=== PATIENT | female | born 1975 | race Caucasian/White ===

== ENCOUNTER 2018-02-13 10:45 | Outpatient (REF) | payer BC, SELFPAY ==
--- NOTE | 2018-02-13 09:30 | PAPFT_PTH ---
PATIENT: Caitlin Alfonso LOC: [facility] U#:[id number] AGE/SX: 42/F ROOM: RE02/13/[address]: RAJAT Sarabia : 1975 BED: DIS: 02/13/2018 SPEC #: [id number] RECD: 02/13/18 12:28 STATUS: EVARISTO RETyrone #: [id number] TEODORO: 02/13/18 09:[address]: Xiao Swartz DEPT: [facility] Cytology RECD BY: Kaci Maurer ENTERED: 02/13/18 12:28 SP TYPE: PAPFT OTHR DR: Jess Bajwa Tissues: 1 - CX/ENDOCX FOR PAP SMEARS Procedures: PAP THIN PREP/[facility] Screening Comments: [id number]
== END 2018-02-13 11:05 ==
LOC: LBN 10:45
PROVIDERS: PCP Registered Nurse; Visit Provider Nurse Practitioner Family
DX: Z12.4 Encounter for screening for malignant neoplasm of cervix (principal)
CPT/HCPCS: 88142

== ENCOUNTER 2018-03-07 00:48 | Outpatient (CLI) | payer BC, SELFPAY ==
--- NOTE | 2018-03-07 09:13 | DI.MAMMO_ITS ---
SYMPTOM/DIAGNOSIS: DIAGNOSTIC, 6 MO. F/U, F/U ABNL MAMMO, INCREASED DENSITY LEFT MAMMOGRAM: Mammograms were interpreted according to the usual protocol including computer analysis with CAD system, tomosynthesis and C view imaging. Comparison is made with prior examinations. Breast density, Category C. The asymmetric breast tissue in the lower inner quadrant of the left breast appears stable. No suspicious masses or microcalcifications are seen. The skin and axilla are unremarkable. IMPRESSION: No definite evidence for malignancy. A 6 month follow up left diagnostic mammogram is requested at which time mammogram of the right breast should be obtained. No evidence for malignancy. Category 3. MQSA ASSESSMENT OF FINDINGS: Probably benign. Six month follow-up recommended. Category 3. Patient will receive a letter notifying them of these results. Bi-RADS category C. The breasts are heterogeneously dense, which may obscure small masses.
== END 2018-03-07 01:08 ==
PROVIDERS: PCP Registered Nurse; Visit Provider Nurse Practitioner Family
DX: Z12.31 Encounter for screening mammogram for malignant neoplasm of breast (principal); R92.8 Other abnormal and inconclusive findings on diagnostic imaging of breast; N60.82 Other benign mammary dysplasias of left breast
CPT/HCPCS: 77061; 77065; G0279

== ENCOUNTER 2018-08-28 00:34 | Outpatient (CLI) | payer BC, SELFPAY ==
--- NOTE | 2018-08-28 09:15 | DI.MAMMO_ITS ---
SYMPTOMS/DIAGNOSIS: SCREENING, Z12.31 MAMMOGRAM: Mammograms were interpreted according to the usual protocol including computer analysis with CAD system, tomosynthesis and C view imaging. Comparison with prior examinations. Breast density C. No suspicious masses or microcalcifications are seen. The asymmetric breast tissue in the medial aspect of the left breast is best appreciated on the craniocaudad view. It does appear to be slightly more prominent compared to the prior examination. Spot compression view is requested. Ultrasound may be indicated at that time. No other suspicious masses or microcalcifications are seen. The skin and axilla are unremarkable. IMPRESSION: Additional views and ultrasound of the left breast is requested as described above. Category 0. MQSA ASSESSMENT OF FINDINGS: Incomplete: Needs additional imaging evaluation. Category 0. Patient will receive a letter notifying them of these results. Bi-RADS category C. The breasts are heterogeneously dense, which may obscure small masses.
== END 2018-08-28 00:54 ==
PROVIDERS: PCP Registered Nurse; Visit Provider Nurse Practitioner Family
DX: Z12.31 Encounter for screening mammogram for malignant neoplasm of breast (principal); R92.8 Other abnormal and inconclusive findings on diagnostic imaging of breast
CPT/HCPCS: 77063; 77067

== ENCOUNTER 2018-09-06 00:38 | Outpatient (CLI) | payer BC, SELFPAY ==
--- NOTE | 2018-09-06 09:55 | DI.COMBO_ITS ---
SYMPTOM/DIAGNOSIS: F/U ABNL MAMMO, ASYMMETRIC BREAST TISSUE. ADDITIONAL VIEWS LEFT BREAST, LEFT BREAST ULTRASOUND: Comparison with prior examinations. Additional images are interpreted according to the usual protocol including tomosynthesis and 2D imaging. Additional views of the left breast again show an asymmetric density in the medial left breast on the craniocaudad view. No associated areas of architectural distortion or calcification are noted. It appears unchanged compared to the prior examination. Left breast ultrasound was performed. The lower inner and upper inner quadrants of the left breast were evaluated sonographically. No cystic or solid masses are seen. Comparison with ultrasound from 08/31/17 shows no change. IMPRESSION: No evidence for malignancy. Yearly mammography is recommended. Category 2. Breast density category C. The findings were discussed with the patient on the date of the examination. SA ASSESSMENT OF FINDINGS: Negative with benign findings. Category 2. Patient will receive a letter notifying them of these results. Bi-RADS category C. The breasts are heterogeneously dense, which may obscure small masses.
== END 2018-09-06 00:58 ==
PROVIDERS: PCP Registered Nurse; Visit Provider Nurse Practitioner Family
DX: Z12.31 Encounter for screening mammogram for malignant neoplasm of breast (principal); R92.8 Other abnormal and inconclusive findings on diagnostic imaging of breast; N64.59 Other signs and symptoms in breast
CPT/HCPCS: 76642; 77063; 77067

== ENCOUNTER 2019-02-19 08:49 | Outpatient (REF) | payer BC, SELFPAY ==
--- NOTE | 2019-02-19 08:45 | PAPFT_PTH ---
PATIENT: Caitlin Alfonso LOC: [facility] U#:[id number] AGE/SX: 43/F ROOM: RE02/19/[address]: RAJAT Sarabia : 1975 BED: DIS: 02/19/2019 SPEC #: [id number] RECD: 02/19/19 12:55 STATUS: EVARISTO GEOFF #: [id number] TEODORO: 02/19/19 08:[address]: Xiao Swartz DEPT: [facility] Cytology RECD BY: Kaci Maurer ENTERED: 02/19/19 12:55 SP TYPE: PAPFT OTHR DR: Jess Bajwa Tissues: 1 - CX/ENDOCX FOR PAP SMEARS Procedures: PAP THIN PREP/[facility] Screening HPV DNA PROBE Comments: [id number]
== END 2019-02-19 09:09 ==
LOC: LBN 08:49
PROVIDERS: PCP Registered Nurse; Visit Provider Nurse Practitioner Family
DX: R30.0 Dysuria (principal); Z12.4 Encounter for screening for malignant neoplasm of cervix
CPT/HCPCS: 88142; 87086; 87624

== ENCOUNTER 2019-11-29 01:41 | Outpatient (CLI) | payer BC, SELFPAY ==
--- NOTE | 2019-11-29 16:05 | DI.MAMMO_ITS ---
EXAM: MG MAMMO SCREENING CLINICAL HISTORY: screening,Z12.39 TECHNIQUE: Bilateral full field digital CC and MLO mammographic images were obtained with 3D tomosyn thesis and utilizing computer aided detection (CAD). COMPARISON: Available for comparison. FINDINGS: Masses/Architectural Distortion: None seen. Microcalcifications: No suspicious pleomorphic-type are seen. Skin Thickening/Nipple Retraction: None. IMPRESSION: 1. No significant interval change with no specific features of malignancy noted. 2. Unless there is more urgent need, screening mammography is recommended, as per [employer] guidelines. BI-RADS Category 1 - Negative Breast Density - Category C - Heterogeneously dense The mammogram demonstrates the patient's breast tissue is dense. Dense breast tissue is very common a nd is not abnormal but dense breast tissue can make it harder to find cancer on a mammogram. Also, de nse breast tissue may increase their breast cancer risk. This information about the result of the [facility] mogram report was provided to the patient to raise their awareness. Use this report when you speak wi th the patient about their risks for breast cancer, which includes their family history. At that time , you may recommend for more screening tests (Ultrasound or MRI) as they might be useful based on the ir risk. A negative radiographic report should not delay biopsy if a dominant or clinically suspicious mass is present. Up to ten percent of cancers are not identified on mammography. A negative report may reinforce clinical impression. Adenosis and dense breasts may obscure an underlying neoplasm. False positive reports average 6 to 10%. Patient will receive a letter notifying them of these results.
== END 2019-11-29 02:01 ==
PROVIDERS: PCP Registered Nurse; Visit Provider Nurse Practitioner Family
DX: Z12.31 Encounter for screening mammogram for malignant neoplasm of breast (principal)
CPT/HCPCS: 77063; 77067

== ENCOUNTER 2024-04-16 02:23 | Outpatient (CLI) | payer BC, SELFPAY ==
--- NOTE | 2024-04-18 20:50 | W.PFT ---
Date of service: 04/16/24 Time of Service: 14:55 Pulmonary Function Test Result Indications: Chemotherapy induced lung injury Interpretation Diffusion Capacity: Normal diffusion Impression Normal diffusion Clinical Correlation therefore is recommended.
== END 2024-04-16 02:24 | disposition home or self-care (01) ==
PROVIDERS: PCP Registered Nurse; Visit Provider Student in an Organized Health Care Education/Training Program
DX: J98.4 Other disorders of lung (principal); Z79.899 Other long term (current) drug therapy
CPT/HCPCS: 94729

== ENCOUNTER 2024-07-11 00:44 | Outpatient (RCR) | payer BC, SELFPAY ==
[2024-06-20] MEDS: Normal Saline Flush 10 ML SYR IVP (12:44)
[2024-06-20 13:03] LABS: Abs Immature Grans 0.02 10^3/uL (0.0-0.06); Absolute Basophil Count 0.05 10^3/uL (0.0-0.2); Absolute Eosinophil Count 0.04 10^3/uL (0.0-0.7); Absolute Lymphocyte Count 2.23 10^3/uL (1.2-3.4); Absolute Monocyte Count 0.92 10^3/uL (0.1-0.8); Absolute Neutrophil Count 6.28 10^3/uL (1.2-6.7); Basophils % 0.5 %; Eosinophils % 0.4 %; HCT 39.5 % (36.0-46.0); HGB 13.4 g/dL (11.2-15.7); Immature Grans % 0.2 %; Lymphocytes % 23.4 %; MCH 29.5 pg (27.0-33.0); MCHC 33.9 % (32.0-36.0); MCV 87 fL (80-95); MPV 10.1 fL (8.0-11.0); Monocytes % 9.6 %; Neutrophils % 65.9 %; Platelet Count 133 10^3/uL (130-400); RBC 4.55 10^6/uL (3.93-5.22); RDW 14.5 % (11.7-14.6); RDW-SD 45.6 fL; WBC 9.54 10^3/uL (4.4-10.8)
[2024-06-20 13:19] LABS: ALT 34 U/L (14-59); AST 18 U/L (15-37); Albumin 3.6 g/dL (3.4-5.0); Alkaline Phosphatase 54 U/L (46-116); Anion Gap 5.7 mmol/L (3-11); BUN 15 mg/dL (7-18); Bilirubin, Total 0.3 mg/dL (0.2-1.0); CO2 28.3 mmol/L (21.0-32.0); CREATININE 0.6 mg/dL (0.55-1.02); Calcium 9.2 mg/dL (8.5-10.1); Chloride 103 mmol/L (98-107); Estimated GFR 110.65 (mL/min/1.73m2); Glucose 115 mg/dL (74-106); Potassium 3.7 mmol/L (3.5-5.1); Sodium 137 mmol/L (136-145); Total Protein 7.3 g/dL (6.4-8.2)
[2024-06-21 18:23] LABS: Estradiol 141 pg/mL (See Note)
[2024-06-21 18:42] LABS: FSH 2.7 mIU/mL (See Note)
[2024-07-11] MEDS: Normal Saline Flush 10 ML SYR IVP (12:19)
[2024-07-11 12:39] LABS: Abs Immature Grans 0.02 10^3/uL (0.0-0.06); Absolute Basophil Count 0.01 10^3/uL (0.0-0.2); Absolute Eosinophil Count 0.08 10^3/uL (0.0-0.7); Absolute Lymphocyte Count 1.29 10^3/uL (1.2-3.4); Absolute Monocyte Count 0.32 10^3/uL (0.1-0.8); Absolute Neutrophil Count 3.06 10^3/uL (1.2-6.7); Basophils % 0.2 %; Eosinophils % 1.7 %; HCT 38.3 % (36.0-46.0); HGB 12.9 g/dL (11.2-15.7); Immature Grans % 0.4 %; MCHC 33.7 % (32.0-36.0); MCV 89 fL (80-95); MPV 9.7 fL (8.0-11.0); Monocytes % 6.7 %; Platelet Count 179 10^3/uL (130-400); RDW 14.2 % (11.7-14.6); RDW-SD 45.3 fL; WBC 4.78 10^3/uL (4.4-10.8)
[2024-07-11 12:56] LABS: ALT 24 U/L (14-59); AST 14 U/L (15-37); Albumin 3.7 g/dL (3.4-5.0); Alkaline Phosphatase 58 U/L (46-116); Anion Gap 9.2 mmol/L (3-11); BUN 15 mg/dL (7-18); Bilirubin, Total 0.3 mg/dL (0.2-1.0); CO2 28.8 mmol/L (21.0-32.0); CREATININE 0.7 mg/dL (0.55-1.02); Calcium 9.2 mg/dL (8.5-10.1); Chloride 102 mmol/L (98-107); Estimated GFR 106.62 (mL/min/1.73m2); Glucose 121 mg/dL (74-106); Sodium 140 mmol/L (136-145); Total Protein 7.6 g/dL (6.4-8.2)
[2024-07-11 22:18] LABS: Estradiol 127 pg/mL (See Note)
[2024-07-11 22:33] LABS: FSH 24.4 mIU/mL (See Note)
== END 2024-07-14 23:59 | disposition home or self-care (01) ==
LOC: INF 00:44
PROVIDERS: PCP Registered Nurse; Visit Provider Internal Medicine Hematology & Oncology
DX: C71.1 Malignant neoplasm of frontal lobe (principal)
CPT/HCPCS: 36591; 80053; 82670; 83001; 85025

== ENCOUNTER 2024-08-01 02:51 | Outpatient (RCR) | payer BC, SELFPAY ==
[2024-08-01 13:08] LABS: Abs Immature Grans 0.02 10^3/uL (0.0-0.06); Absolute Basophil Count 0.03 10^3/uL (0.0-0.2); Absolute Eosinophil Count 0.03 10^3/uL (0.0-0.7); Absolute Neutrophil Count 3.63 10^3/uL (1.2-6.7); Basophils % 0.5 %; Eosinophils % 0.5 %; HCT 38.8 % (36.0-46.0); HGB 13.1 g/dL (11.2-15.7); Immature Grans % 0.3 %; Lymphocytes % 26.6 %; MCH 30.8 pg (27.0-33.0); MCHC 33.8 % (32.0-36.0); MCV 91 fL (80-95); MPV 9.8 fL (8.0-11.0); Monocytes % 11.6 %; Neutrophils % 60.5 %; Platelet Count 223 10^3/uL (130-400); RBC 4.26 10^6/uL (3.93-5.22); RDW 15.3 % (11.7-14.6); WBC 6.01 10^3/uL (4.4-10.8)
[2024-08-01] MEDS: Normal Saline Flush 10 ML SYR IVP (13:25)
[2024-08-01 13:26] LABS: ALT 32 U/L (14-59); AST 17 U/L (15-37); Albumin 3.6 g/dL (3.4-5.0); Alkaline Phosphatase 56 U/L (46-116); Anion Gap 7.3 mmol/L (3-11); BUN 16 mg/dL (7-18); Bilirubin, Total 0.3 mg/dL (0.2-1.0); CO2 31.7 mmol/L (21.0-32.0); CREATININE 0.7 mg/dL (0.55-1.02); Calcium 9.1 mg/dL (8.5-10.1); Chloride 103 mmol/L (98-107); Estimated GFR 106.62 (mL/min/1.73m2); Glucose 100 mg/dL (74-106); Sodium 142 mmol/L (136-145); Total Protein 7.3 g/dL (6.4-8.2)
[2024-08-01 23:26] LABS: Estradiol 22 pg/mL (See Note)
[2024-08-02 09:57] LABS: FSH 33.2 mIU/mL (See Note)
== END 2024-08-13 23:59 | disposition home or self-care (01) ==
LOC: INF 02:51
PROVIDERS: PCP Registered Nurse; Visit Provider Internal Medicine Hematology & Oncology
DX: C71.1 Malignant neoplasm of frontal lobe (principal); Z45.2 Encounter for adjustment and management of vascular access device
CPT/HCPCS: 36591; 80053; 82670; 83001; 85025

== ENCOUNTER 2024-08-03 01:21 | Outpatient (CLI) | payer BC, SELFPAY ==
--- NOTE | 2024-08-19 09:41 | W.PFT ---
Date of service: 08/03/24 Time of Service: 09:59 Pulmonary Function Test Result Indications: Brain tumor Interpretation Spirometry: No airflow limitation. Lung Volumes: Normal lung volumes Diffusion Capacity: Normal diffusion Airway Pressure: Normal airways resistance Impression Normal pulmonary fucntion testing Clinical Correlation therefore is recommended.
== END 2024-08-03 01:22 | disposition home or self-care (01) ==
LOC: RT 01:21
PROVIDERS: PCP Registered Nurse; Visit Provider Student in an Organized Health Care Education/Training Program
DX: C71.1 Malignant neoplasm of frontal lobe (principal)
CPT/HCPCS: 94726; 94729; 94010

== ENCOUNTER 2024-09-12 03:19 | Outpatient (RCR) | payer BC, SELFPAY ==
[2024-08-22 09:02] LABS: Abs Immature Grans 0.02 10^3/uL (0.0-0.06); HCT 39.3 % (36.0-46.0); HGB 13.4 g/dL (11.2-15.7); Immature Grans % 0.3 %; MCH 31.0 pg (27.0-33.0); MCHC 34.1 % (32.0-36.0); MCV 91 fL (80-95); MPV 10.3 fL (8.0-11.0); Platelet Count 141 10^3/uL (130-400); RBC 4.32 10^6/uL (3.93-5.22); RDW 14.2 % (11.7-14.6); RDW-SD 47.4 fL; WBC 7.78 10^3/uL (4.4-10.8)
[2024-08-22] MEDS: Normal Saline Flush 10 ML SYR IVP (10:43)
[2024-09-12] MEDS: Normal Saline Flush 10 ML SYR IVP (11:57)
[2024-09-12 12:44] LABS: ALT 43 U/L (14-59); AST 24 U/L (15-37); Albumin 3.6 g/dL (3.4-5.0); Alkaline Phosphatase 58 U/L (46-116); Anion Gap 8.0 mmol/L (3-11); BUN 16 mg/dL (7-18); Bilirubin, Total 0.4 mg/dL (0.2-1.0); CO2 28.0 mmol/L (21.0-32.0); Calcium 9.1 mg/dL (8.5-10.1); Chloride 103 mmol/L (98-107); Estimated GFR 110.65 (mL/min/1.73m2); Glucose 96 mg/dL (74-106); Potassium 4.0 mmol/L (3.5-5.1); Sodium 139 mmol/L (136-145); Total Protein 7.2 g/dL (6.4-8.2)
[2024-09-12 13:14] LABS: Abs Immature Grans 0.01 10^3/uL (0.0-0.06); HCT 35.7 % (36.0-46.0); HGB 12.3 g/dL (11.2-15.7); Immature Grans % 0.2 %; MCH 31.9 pg (27.0-33.0); MCHC 34.5 % (32.0-36.0); MCV 93 fL (80-95); MPV 11.1 fL (8.0-11.0); RBC 3.85 10^6/uL (3.93-5.22); RDW 13.4 % (11.7-14.6); RDW-SD 45.6 fL; WBC 4.12 10^3/uL (4.4-10.8)
[2024-09-12 13:52] LABS: RBC Morphology Normal
[2024-09-12 13:53] LABS: Platelet Count 44 10^3/uL (130-400)
== END 2024-09-13 23:59 | disposition home or self-care (01) ==
LOC: INF 03:19
PROVIDERS: PCP Registered Nurse; Visit Provider Internal Medicine Hematology & Oncology
DX: Z45.2 Encounter for adjustment and management of vascular access device (principal); C71.1 Malignant neoplasm of frontal lobe
CPT/HCPCS: 36591; 80053; 96523; 85025

== ENCOUNTER 2024-11-07 08:30 | Outpatient (RCR) | payer BC, SELFPAY ==
[2024-10-17 12:25] LABS: Abs Immature Grans 2.10 10^3/uL (0.0-0.06); HCT 35.4 % (36.0-46.0); HGB 11.7 g/dL (11.2-15.7); MCH 32.0 pg (27.0-33.0); MCHC 33.1 % (32.0-36.0); MCV 97 fL (80-95); MPV 9.7 fL (8.0-11.0); Platelet Count 175 10^3/uL (130-400); RBC 3.66 10^6/uL (3.93-5.22); RDW 14.6 % (11.7-14.6); RDW-SD 51.6 fL
[2024-10-17] MEDS: Normal Saline Flush 10 ML SYR IVP (12:32)
[2024-10-17 12:43] LABS: ALT 45 U/L (14-59); AST 27 U/L (15-37); Albumin 3.5 g/dL (3.4-5.0); Alkaline Phosphatase 142 U/L (46-116); Anion Gap 9.5 mmol/L (3-11); BUN 19 mg/dL (7-18); Bilirubin, Total 0.2 mg/dL (0.2-1.0); CO2 29.5 mmol/L (21.0-32.0); Calcium 9.1 mg/dL (8.5-10.1); Chloride 102 mmol/L (98-107); Glucose 109 mg/dL (74-106); Potassium 3.8 mmol/L (3.5-5.1); Sodium 141 mmol/L (136-145); Total Protein 7.2 g/dL (6.4-8.2)
[2024-10-17 12:44] LABS: Immature Grans % 0.0 %
[2024-10-17 12:45] LABS: RBC Morphology Normal
[2024-10-17 13:06] LABS: WBC 25.16 10^3/uL (4.4-10.8)
[2024-11-07 08:50] LABS: Abs Immature Grans 0.02 10^3/uL (0.0-0.06); HCT 35.2 % (36.0-46.0); HGB 11.8 g/dL (11.2-15.7); Immature Grans % 0.4 %; MCH 32.2 pg (27.0-33.0); MCHC 33.5 % (32.0-36.0); MCV 96 fL (80-95); MPV 9.9 fL (8.0-11.0); Platelet Count 115 10^3/uL (130-400); RBC 3.66 10^6/uL (3.93-5.22); RDW 13.9 % (11.7-14.6); RDW-SD 49.1 fL; WBC 4.94 10^3/uL (4.4-10.8)
[2024-11-07 09:08] LABS: ALT 78 U/L (14-59); AST 34 U/L (15-37); Albumin 3.8 g/dL (3.4-5.0); Alkaline Phosphatase 111 U/L (46-116); Anion Gap 6.7 mmol/L (3-11); BUN 17 mg/dL (7-18); Bilirubin, Total 0.4 mg/dL (0.2-1.0); CO2 30.3 mmol/L (21.0-32.0); Calcium 9.4 mg/dL (8.5-10.1); Chloride 104 mmol/L (98-107); Glucose 102 mg/dL (74-106); Potassium 4.3 mmol/L (3.5-5.1); Sodium 141 mmol/L (136-145); Total Protein 7.7 g/dL (6.4-8.2)
[2024-11-07] MEDS: Normal Saline Flush 10 ML SYR IVP (09:21)
== END 2024-11-13 23:59 | disposition home or self-care (01) ==
LOC: INF 08:30
PROVIDERS: PCP Registered Nurse; Visit Provider Internal Medicine Hematology & Oncology
DX: Z45.2 Encounter for adjustment and management of vascular access device (principal); C71.1 Malignant neoplasm of frontal lobe
CPT/HCPCS: 36591; 80053; 85025

== ENCOUNTER 2024-12-19 12:24 | Outpatient (RCR) | payer BC, SELFPAY ==
[2024-12-19 12:49] LABS: HCT 34.7 % (36.0-46.0); HGB 11.7 g/dL (11.2-15.7); MCH 33.7 pg (27.0-33.0); MCHC 33.7 % (32.0-36.0); MCV 100 fL (80-95); MPV 9.7 fL (8.0-11.0); Platelet Count 144 10^3/uL (130-400); RBC 3.47 10^6/uL (3.93-5.22); RDW 14.1 % (11.7-14.6); RDW-SD 51.3 fL; WBC 16.36 10^3/uL (4.4-10.8)
[2024-12-19 13:05] LABS: Abs Immature Grans 0.00 10^3/uL (0.0-0.06); Immature Grans % 0.0 %; RBC Morphology Normal
[2024-12-19 13:10] LABS: ALT 42 U/L (14-59); AST 19 U/L (15-37); Albumin 3.6 g/dL (3.4-5.0); Alkaline Phosphatase 143 U/L (46-116); Anion Gap 7.9 mmol/L (3-11); BUN 15 mg/dL (7-18); Bilirubin, Total 0.2 mg/dL (0.2-1.0); CO2 29.1 mmol/L (21.0-32.0); Calcium 9.0 mg/dL (8.5-10.1); Chloride 104 mmol/L (98-107); Estimated GFR 106.62 (mL/min/1.73m2); Glucose 94 mg/dL (74-106); Potassium 4.1 mmol/L (3.5-5.1); Sodium 141 mmol/L (136-145); Total Protein 7.3 g/dL (6.4-8.2)
[2024-12-20] MEDS: Normal Saline Flush 10 ML SYR IVP (12:39)
== END 2025-01-13 23:59 | disposition home or self-care (01) ==
LOC: INF 12:24
PROVIDERS: PCP Registered Nurse; Visit Provider Internal Medicine Hematology & Oncology
DX: C71.1 Malignant neoplasm of frontal lobe (principal)
CPT/HCPCS: 36591; 80053; 85025